=== PATIENT | female | born 1965 | race African-American/Black ===

== ENCOUNTER → 2020-09-29 | Outpatient (CLI) | payer BC ==
[~2020-09-29] MED LIST: ASPIRIN81 M2 PO; NEXIUM 40 MG CA40 M1 PO; TOPAMAX100 MG PO; VENOFER100 MG/51 IV; ZOLOFT25 MG PO
== END ==
LOC: RAD 08:09
PROVIDERS: ATTEND Pediatrics
DX: U07.1 COVID-19 (principal); J12.82 Pneumonia due to coronavirus disease 2019